=== PATIENT | female | born 1960 | race Caucasian/White ===

== ENCOUNTER → 2018-04-21 10:16 | Outpatient (CLI) | payer OTHER, SELFPAY ==
--- NOTE | 2018-04-21 | DI.MRI.S_ITS ---
PROCEDURE: MR HEAD/BRAIN WO CON INDICATIONS: WORSENING HEADACHES TECHNIQUE: Noncontrast axial T1 spin echo, axial T2 fast spin echo, sagittal and axial FLAIR, coronal T2 fast spin echo, axial gradient echo, axial diffusion and ADC through the brain. COMPARISON: None. FINDINGS: Image quality: Excellent. CSF Spaces: Basal cisterns are patent. No extra-axial fluid collections. Ventricles are normal in size and shape. Brain: No intracranial masses or hemorrhage. Jain/white matter interface is normal. Brainstem appears normal. Diffusion-weighted images demonstrate no acute ischemic insult. No chronic ischemic insults. Normal intravascular flow voids are present. Skull and face: Calvarium has normal marrow signal. Orbits appear normal. Sinuses: Sinuses and mastoids are clear. IMPRESSION: A cause of worsening headaches cannot be seen. No masses or mass effect. No hydrocephalus or brain edema. No Chiari 1 malformation. Dictated by: Sheldon Wadsworth M.D. on 04/21/2018 at 13:31 Approved by: Sheldon Wadsworth M.D. on 04/21/2018 at 13:32
== END ==
PROVIDERS: Visit Provider Nurse Practitioner Family
DX: R51 Headache (principal)
CPT/HCPCS: 70551

== ENCOUNTER → 2019-05-31 10:01 | Outpatient (CLI) | payer OTHER, SELFPAY ==
--- NOTE | 2019-05-31 10:06 | DI.RAD.S_ITS ---
PROCEDURE: XR FOREARM RT 2V INDICATIONS: r/o fracture TECHNIQUE: 2 views of the forearm were acquired. COMPARISON: None. FINDINGS: Bones: No fractures or dislocations. No suspicious bony lesions. Soft tissues: No suspicious soft tissue calcifications or masses. IMPRESSION: No radial or ulnar shaft fracture. No dislocation. Please see separately dictated left elbow radiographs. Dictated by: Star Lam M.D. on 05/31/2019 at 10:29 Approved by: Star Lam M.D. on 05/31/2019 at 10:31
--- NOTE | 2019-05-31 10:06 | DI.RAD.S_ITS ---
PROCEDURE: XR ELBOW LT MIN 3V INDICATIONS: r/o fracture TECHNIQUE: 3 views of the elbow were acquired. COMPARISON: Same day radius and ulna radiographs. FINDINGS: Bones: Irregularity at the radial neck may represent a nondisplaced fracture or osteophyte. Medial and lateral epicondyles enthesophyte. No suspicious bony lesions. Soft tissues: A elbow joint effusion is present. No suspicious soft tissue calcifications. IMPRESSION: Irregularity at the radial neck is suspicious for a nondisplaced fracture. No dislocation. Small joint effusion. Dictated by: Star Lam M.D. on 05/31/2019 at 10:31 Approved by: Star Lam M.D. on 05/31/2019 at 10:34
--- NOTE | 2019-05-31 10:06 | DI.RAD.S_ITS ---
PROCEDURE: XR WRIST LT MIN 3V INDICATIONS: r/o fracture TECHNIQUE: 5 views of the wrist were acquired. COMPARISON: None. FINDINGS: Bones: No fractures or dislocations. No suspicious bony lesions. Scaphoid view: Normal. Soft tissues: No suspicious soft tissue calcifications. IMPRESSION: No acute osseous abnormality. Dictated by: Star Lam M.D. on 05/31/2019 at 10:28 Approved by: Star Lam M.D. on 05/31/2019 at 10:29
== END ==
PROVIDERS: Visit Provider Physician Assistant
DX: M25.522 Pain in left elbow (principal); M25.422 Effusion, left elbow; S52.135A Nondisplaced fracture of neck of left radius, initial encounter for closed fracture; W19.XXXA Unspecified fall, initial encounter
CPT/HCPCS: 73080; 73090; 73110

== ENCOUNTER 2021-01-22 06:56 | Emergency (ER) | payer OTHER, SELFPAY ==
[2021-01-22] VITALS (8 sets, daily range): BP systolic 133–179; BP diastolic 80–108; PULSE 110–131; RESP 17; TEMP 37; O2SAT 96–99; BMI 25.7
--- NOTE | 2021-01-22 07:09 | ED_ITS ---
HPI - General Adult General Chief complaint: Abdominal Pain Stated complaint: horrible left side pain Time Seen by Provider: 01/22/21 06:59 Source: patient Mode of arrival: Ambulatory Limitations: no limitations History of Present Illness HPI narrative: Patient is a 60-year-old female here for evaluation of left-sided pain. She states it woke her from sleep approximately 5 hours prior to arrival here in the emergency department. Has been constant since then however has had periods of time what is been worse than others. She has had a bowel movement urinated since the onset of the pain but has not had any relief from this. Does seem to get somewhat worse with moving. Nothing seems to make it better. No fevers. No back pain. Has never had a kidney stone before. Has had her appendix and gallbladder removed and also hysterectomy. Related Data Home Medications Medication Instructions Recorded Confirmed Atorvastatin Calcium (Lipitor) 20 mg PO #0 03/13/10 05/31/19 Candesartan Cilexetil (Atacand) #0 03/13/10 05/31/19 Conjugated Estrogens (Premarin) #0 03/13/10 05/31/19 Esomeprazole Magnesium (Nexium) #0 03/13/10 05/31/19 FLUTICASONE/SALMETEROL (Advair #0 03/13/10 05/31/19 100-50 Diskus) Montelukast Sodium (Singulair) #0 03/13/10 05/31/19 [CLARINEX] #0 03/13/10 05/31/19 Previous Rx's Medication Instructions Recorded ciprofloxacin HCl 500 mg PO BID 10 Days #19 tab 01/22/21 fluconazole [Diflucan] 150 mg PO DAILY #2 tab 01/22/21 hydrocodone-acetaminophen 1 tab PO Q6H PRN #7 tab 01/22/21 metronidazole [Flagyl] 500 mg PO TID 10 Days #29 tab 01/22/21 ondansetron 4 mg PO Q6H PRN #10 tab 01/22/21 Allergies Allergy/AdvReac Type Severity Reaction Status Date / Time Cortisone Allergy Unknown Uncoded 05/31/19 10:57 Iodine Allergy Unknown Uncoded 05/31/19 10:57 Morphine Allergy Unknown Uncoded 05/31/19 10:57 Review of Systems Constitutional Constitutional: Reports system reviewed and no additional complaints, except as documented Cardiovascular Cardiovascular: Reports system reviewed and no additional complaints, except as documented Respiratory Respiratory: Reports system reviewed and no additional complaints, except as documented Gastrointestinal Gastrointestinal: Reports abdominal pain, Denies constipation and Denies diarrhea Genitourinary Genitourinary: Denies dysuria Genitourinary: Denies dysuria Musculoskeletal Musculoskeletal: Denies back pain Integumentary/Breasts Skin/Breast: Reports system reviewed and no additional complaints, except as documented Neurologic Neurologic: Reports system reviewed and no additional complaints, except as documented Endocrine Endocrine: Reports system reviewed and no additional complaints, except as documented Hematologic/Lymphatic On Anticoagulants: No Allergic/Immunologic Allergic/Immunologic: Reports system reviewed and no additional complaints, except as documented Patient History Medical History Diabetes Social History lives independently: Yes Smoking Status: Never smoker Exam Initial Vital Signs Initial Vital Signs: Vital Signs Pulse Rate 131 H 01/22/21 07:03 Blood Pressure 178/108 H 01/22/21 07:03 Pulse Oximetry 97 01/22/21 07:03 Const General: cooperative Limitations: mental status not altered HENMT Head: normal to inspection and normocephalic Resp Effort & Inspection: normal respiratory effort Auscultation: clear to auscultation bilaterally Cardio Rate: tachycardic Rhythm: regular rhythm GI Inspection: non-distended Palpation: soft and tender (Left-sided abdomen) Back/Spine/Pelvis Back: No CVA tenderness Skin Lesions: no lesions Rashes: no rashes Neuro General: patient alert and patient awake Cognition: normal cognition Speech: speech normal Extrem General: capillary refill normal Psych Appearance: grossly normal and well kempt Course Orders Ordered: ED Orders 01/22/21 07:10 EKG-12 Lead Stat 01/22/21 07:11 Complete Blood Count AUTO DIFF Stat Comprehensive Metabolic Panel Stat Lipase Stat 01/22/21 07:20 Urine Microscopic Stat 01/22/21 08:23 CT kidney ureter bladder (KUB) Stat Discontinued Medications Ciprofloxacin (Ciprofloxacin 250 Mg Tablet) 500 mg PO NOW ONE Stop: 01/22/21 09:02 Hydromorphone HCl (Hydromorphone 0.5 Mg Inj) 0.5 mg IV NOW ONE Stop: 01/22/21 07:10 Last Admin: 01/22/21 07:25 Dose: 0.5 mg Documented by: DAINA Hydromorphone HCl (Hydromorphone 0.5 Mg Inj) 0.5 mg IV NOW ONE Stop: 01/22/21 08:13 Last Admin: 01/22/21 08:16 Dose: 0.5 mg Documented by: DAINA Sodium Chloride (Normal Saline 0.9%) 1,000 mls @ 1,000 mls/hr IV BOLUS ONE Stop: 01/22/21 08:08 Last Infusion: 01/22/21 08:37 Dose: 0 mls/hr Documented by: Admin: 01/22/21 07:30 Dose: 1,000 mls/hr Documented by: DAINA Metronidazole (Metronidazole 500 Mg Tablet) 500 mg PO NOW ONE Stop: 01/22/21 09:02 Ondansetron HCl (Ondansetron 4 Mg/2 Ml Inj) 4 mg IV NOW ONE Stop: 01/22/21 07:10 Last Admin: 01/22/21 07:25 Dose: 4 mg Documented by: DAINA Vital Signs Vital signs: Vital Signs - 8 hr 01/22/21 07:03 01/22/21 07:05 01/22/21 07:27 Temperature 98.6 F Pulse Rate 131 H 131 H 126 H Respiratory Rate 17 Blood Pressure 178/108 H 178/108 H 179/80 H Pulse Oximetry 97 96 97 01/22/21 07:30 01/22/21 08:04 01/22/21 08:05 Temperature Pulse Rate 124 H 117 H 116 H Respiratory Rate Blood Pressure 133/87 168/89 H Pulse Oximetry 96 99 96 Medical Decision Making Lab Data Lab results reviewed: Yes I reviewed the patient's lab results. Result diagrams: 01/22/21 07:11 01/22/21 07:11 Labs: Lab Results 01/22/21 01/22/21 01/22/21 Range/Units 07:11 07:11 07:20 WBC 16.6 H (4.5-11.0) X10^3/uL RBC 4.72 (4.0-5.2) X10^6/uL Hgb 13.6 (12.0-16.0) g/dL Hct 39.5 (36-46) % MCV 83.7 (80-100) fL MCH 28.7 (26-34) PG MCHC 34.3 (30-36) % RDW 12.6 (11.6-14.8) % Plt Count 444 H (150-400) X10^3/uL Neut % (Auto) 83.4 H (50-75) % Lymph % (Auto) 8.2 L (25-40) % [place] % (Auto) 7.3 (3-14) % Eos % (Auto) 0.7 L (2-4) % Baso % (Auto) 0.4 (0-2) % Neut # (Auto) 28200 H (9751-8335) /uL Lymph # (Auto) 1400 (0189-0731) /uL [place] # (Auto) 1200 H (0-900) /uL Eos # (Auto) 100 (0-450) /uL Baso # (Auto) 100 (0-100) /uL Sodium 133 L (137-145) mmol/L Potassium 3.0 L (3.4-5.1) mmol/L Chloride 89 L (98-107) mmol/L Carbon Dioxide 28 (22-32) mmol/L BUN 28 H (7-17) mg/dL Creatinine 1.34 H (0.52-1.04) mg/dL Estimated GFR 40.3 L (>60) mL/min BUN/Creatinine Ratio 20.9 (6-22) Glucose 241 H (80-110) mg/dL Calcium 10.3 H (8.4-10.2) mg/dL Total Bilirubin 1.1 (0.2-1.3) mg/dL AST 29 (14-36) IU/L ALT 26 (<35) IU/L Alkaline Phosphatase 80 (38-126) U/L Total Protein 8.6 H (6.3-8.2) g/dL Albumin 5.0 (3.5-5.0) g/dL Globulin 3.6 (1.7-4.1) g/dL Albumin/Globulin Ratio 1.4 (1.0-2.8) Lipase 170 (23-300) U/L Urine RBC 1-5/hpf (0-5/HPF) Urine WBC 1-5/hpf (0-5/HPF) Ur Squamous Epith Cells 1-5 /hpf (0-5/HPF) Ur Transition Epith Cell 0-1/hpf (0-5/HPF) Urine Bacteria Occasional (0-1) (None) Ur Culture Indicated? Cult not indicated Urine Dip Bedside Urine Glucose 1000 mg/dl Bedside Urine Bilirubin - Negative Bedside Urine Ketone ++ 40 Urine Specific [place] 1.015 Bedside Urine Occult Blood +/- Bedside Urine pH 6 Bedside Urine Protein + 30 Bedside Urine Urobilinogen - Negative Bedside Urine Nitrite - Negative Bedside Urine Leukocytes - Negative Esterase Point of care testing: Urine Dip Bedside Urine Glucose 1000 mg/dl Bedside Urine Bilirubin - Negative Bedside Urine Ketone ++ 40 Urine Specific [place] 1.015 Bedside Urine Occult Blood +/- Bedside Urine pH 6 Bedside Urine Protein + 30 Bedside Urine Urobilinogen - Negative Bedside Urine Nitrite - Negative Bedside Urine Leukocytes - Negative Esterase Imaging Data CT scan - abdomen/pelvis: Radiologist's Impression: [address] [id number] Scan ReportSigned Patient: Keesha EscobarMR#: [id number]: 1960Acct:[id number]/Sex: 60 / FDate of Service: 01/22/21Loc: EDAccession Number: [id number] Procedure: CT kidney ureter bladder (KUB) Ordering Provider: Martin Kirk D.O. PROCEDURE: CT KIDNEY URETER BLADDER (KUB) INDICATIONS: Left-sided pain eval for stone TECHNIQUE: Noncontrast 5 mm thick sections acquired from the diaphragms to the symphysis. 5 mm thick coronal and sagittal reformats were then performed. For radiation dose reduction, the following was used: automated exposure control, adjustment of mA and/or kV according to patient size. COMPARISON: None. FINDINGS: Image quality: Excellent. Lung bases: Mild bibasilar dependent atelectasis is seen posteriorly.. Heart size is normal. Urinary system: Both kidneys are normal in size. No kidney stones. No hydronephrosis or perinephric fat stranding. Both ureters appear non-dilated throughout their expected courses. Bladder wall thickness is normal; no calcified bladder stones. Multiple phleboliths are seen in lower pelvis. Other solid organs: Liver is normal in size. Decreased liver parenchymal density is seen suggestive of hepatic steatosis. Gallbladder is surgically absent.. Pa ncreas is normal in contours. Spleen is normal in size. 1.2 x 1 cm fat density nodule in left adrenal gland is seen series 2, image 18 and is consistent with lipid rich adrenal adenoma. No right adrenal nodules. Peritoneum and bowel: There is no bowel obstruction. No gross gastric or small bowel wall thickening. Fecal stasis in the colon is seen. Distal descending colon and sigmoid diverticulosis is noted. Significant wall thickening with pericolonic fat stranding is seen involving proximal to mid portion of sigmoid colon in left lower quadrant consistent with acute diverticulitis. No abscess collection. No free fluid or free air. Nodes and vessels: No retroperitoneal or mesenteric adenopathy by size criteria. Aorta and inferior vena cava are normal in caliber. Abdominal wall: No ventral hernias. Pelvis: No free pelvic fluid. No inguinal hernias or adenopathy. Bones: No suspicious bony lesions. No vertebral body compression fractures. Degenerative disc disease throughout lumbar spine is seen. Osteoarthritic changes are noted throughout bony pelvis. IMPRESSION: 1. No renal stones or hydronephrosis. Normal appearing bilateral ureters and urinary bladder. Multiple phleboliths seen in lower pelvis. 2. Finding is consistent with uncomplicated acute diverticulitis involving proximal to mid sigmoid colon in left lower quadrant. No abscess collection. No free fluid or free air. 3. Mild hepatic steatosis. 4. Incidentally noted of fat density nodule in left adrenal gland as above consistent with lipid rich adrenal adenoma. Dictated by: Franck Calderón M.D. on 01/22/2021 at 8:16 Approved by: Franck Calderón M.D. on 01/22/2021 at 8:21 ECG Data Attestation: I personally reviewed and interpreted this ECG as follows: Prior ECG tracings: not available for review Interpretation: Sinus tachycardia Ventricular rate of 127 Normal QRS Normal QTC Nonspecific ST T wave changes MDM Narrative Medical decision making narrative: Patient does have a leukocytosis. Is afebrile. CT scan does not show any signs of kidney stone but does show uncomplicated diverticulitis without indication of abscess/perforation. Patient was given 1st dose of antibiotics here in the emergency department. Will send home with antibiotics and other symptoms treatment. Patient was given return precautions and follow-up instructions. She expressed understanding and agreement. Discharge Plan Departure Patient Disposition: Home Clinical Impression: Diverticulitis Instructions: DI for Diverticulitis Activity Restrictions/Additional Instructions: Your 1st dose of antibiotics was given here in the emergency department. A prescription for the rest of your medications was electronically transmitted to [facility] in [place]. Contact your primary doctor when you return home. Return to the emergency department for any new or worsening symptoms like we discussed. Prescriptions: New ciprofloxacin HCl 500 mg tablet 500 mg PO BID 10 Days Qty: 19 RF: 0 metronidazole [Flagyl] 500 mg tablet 500 mg PO TID 10 Days Qty: 29 RF: 0 ondansetron 4 mg tablet,disintegrating 4 mg PO Q6H PRN (Reason: nausea and vomiting) Qty: 10 RF: 0 hydrocodone-acetaminophen 5-325 mg tablet 1 tab PO Q6H PRN (Reason: pain) Qty: 7 RF: 0 fluconazole [Diflucan] 150 mg tablet 150 mg PO DAILY Qty: 2 RF: 0 No Action Atorvastatin Calcium (Lipitor) 20 mg PO Qty: 0 RF: 0 Candesartan Cilexetil (Atacand) Qty: 0 RF: 0 Conjugated Estrogens (Premarin) Qty: 0 RF: 0 Esomeprazole Magnesium (Nexium) Qty: 0 RF: 0 [CLARINEX] Qty: 0 RF: 0 FLUTICASONE/SALMETEROL (Advair 100-50 Diskus) Qty: 0 RF: 0 Montelukast Sodium (Singulair) Qty: 0 RF: 0
[2021-01-22 07:20] LABS: Add Manual Diff / Slide Review NO; Basophils Absolute Auto 100 /uL (0-100); Basophils Percent Auto 0.4 % (0-2); Eosinophils Absolute Auto 100 /uL (0-450); Eosinophils Percent Auto 0.7 % (2-4); Hematocrit 39.5 % (36-46); Hemoglobin 13.6 g/dL (12.0-16.0); Lymphocytes Absolute Auto 1400 /uL (1100-4500); Lymphocytes Percent Auto 8.2 % (25-40); Mean Corpuscular HGB Conc 34.3 % (30-36); Mean Corpuscular Hemoglobin 28.7 PG (26-34); Mean Corpuscular Volume 83.7 fL (80-100); Monocytes Absolute Auto 1200 /uL (0-900); Monocytes Percent Auto 7.3 % (3-14); Neutrophils Absolute Auto 13800 /uL (1500-7000); Neutrophils Percent Auto 83.4 % (50-75); Platelet Count 444 X10^3/uL (150-400); Red Blood Cell Count 4.72 X10^6/uL (4.0-5.2); Red Cell Distribution Width 12.6 % (11.6-14.8); White Blood Cell Count 16.6 X10^3/uL (4.5-11.0)
[2021-01-22] MEDS: ONDANSETRON 4 MG/2 ML INJ IV (07:25)
[2021-01-22] MEDS: HYDROMORPHONE 0.5 MG INJ IV ×2 (07:25→08:16)
[2021-01-22 07:29] LABS: Alanine Aminotransferase 26 IU/L (<35); Albumin Globulin Ratio 1.4 (1.0-2.8); Alkaline Phosphatase 80 U/L (38-126); Aspartate Aminotransferase 29 IU/L (14-36); BUN Creatinine Ratio 20.9 (6-22); Bilirubin Total 1.1 mg/dL (0.2-1.3); Blood Urea Nitrogen 28 mg/dL (7-17); Calcium 10.3 mg/dL (8.4-10.2); Carbon Dioxide 28 mmol/L (22-32); Chloride 89 mmol/L (98-107); Estimated Glomerular Filt Rate 40.3 mL/min (>60); Globulin 3.6 g/dL (1.7-4.1); Glucose 241 mg/dL (80-110); HEMOLYSIS < 15 (0-50); Lipase 170 U/L (23-300); Sodium 133 mmol/L (137-145); Total Protein 8.6 g/dL (6.3-8.2)
[2021-01-22] MEDS: SODIUM CHLORIDE 0.9% 1,000 ML 1000 ML IV (07:30)
[2021-01-22 07:55] LABS: RBC Urine 1-5/HPF (0-5/HPF); Squamous Epithelial Cell Urine 1-5 /HPF (0-5/HPF); Transitional Epi Cells Urine 0-1/HPF (0-5/HPF); WBC Urine 1-5/HPF (0-5/HPF)
[2021-01-22 07:58] LABS: Bacteria Urine Occasional (0-1); Culture Indicated Urine Cult Not Indicated
--- NOTE | 2021-01-22 08:23 | DI.CT.S_ITS ---
PROCEDURE: CT KIDNEY URETER BLADDER (KUB) INDICATIONS: Left-sided pain eval for stone TECHNIQUE: Noncontrast 5 mm thick sections acquired from the diaphragms to the symphysis. 5 mm thick coronal and sagittal reformats were then performed. For radiation dose reduction, the following was used: automated exposure control, adjustment of mA and/or kV according to patient size. COMPARISON: None. FINDINGS: Image quality: Excellent. Lung bases: Mild bibasilar dependent atelectasis is seen posteriorly.. Heart size is normal. Urinary system: Both kidneys are normal in size. No kidney stones. No hydronephrosis or perinephric fat stranding. Both ureters appear non-dilated throughout their expected courses. Bladder wall thickness is normal; no calcified bladder stones. Multiple phleboliths are seen in lower pelvis. Other solid organs: Liver is normal in size. Decreased liver parenchymal density is seen suggestive of hepatic steatosis. Gallbladder is surgically absent.. Pancreas is normal in contours. Spleen is normal in size. 1.2 x 1 cm fat density nodule in left adrenal gland is seen series 2, image 18 and is consistent with lipid rich adrenal adenoma. No right adrenal nodules. Peritoneum and bowel: There is no bowel obstruction. No gross gastric or small bowel wall thickening. Fecal stasis in the colon is seen. Distal descending colon and sigmoid diverticulosis is noted. Significant wall thickening with pericolonic fat stranding is seen involving proximal to mid portion of sigmoid colon in left lower quadrant consistent with acute diverticulitis. No abscess collection. No free fluid or free air. Nodes and vessels: No retroperitoneal or mesenteric adenopathy by size criteria. Aorta and inferior vena cava are normal in caliber. Abdominal wall: No ventral hernias. Pelvis: No free pelvic fluid. No inguinal hernias or adenopathy. Bones: No suspicious bony lesions. No vertebral body compression fractures. Degenerative disc disease throughout lumbar spine is seen. Osteoarthritic changes are noted throughout bony pelvis. IMPRESSION: 1. No renal stones or hydronephrosis. Normal appearing bilateral ureters and urinary bladder. Multiple phleboliths seen in lower pelvis. 2. Finding is consistent with uncomplicated acute diverticulitis involving proximal to mid sigmoid colon in left lower quadrant. No abscess collection. No free fluid or free air. 3. Mild hepatic steatosis. 4. Incidentally noted of fat density nodule in left adrenal gland as above consistent with lipid rich adrenal adenoma. Dictated by: Franck Calderón M.D. on 01/22/2021 at 8:16 Approved by: Franck Calderón M.D. on 01/22/2021 at 8:21
[2021-01-22] MEDS: CIPROFLOXACIN 250 MG TABLET 500 MG PO (09:16)
[2021-01-22] MEDS: metroNIDAZOLE 500 MG TABLET PO (09:17)
== END 2021-01-22 09:37 | disposition home or self-care (01) ==
PROVIDERS: Emergency Provider Emergency Medicine
DX: K57.92 Diverticulitis of intestine, part unspecified, without perforation or abscess without bleeding (principal); R00.0 Tachycardia, unspecified
CPT/HCPCS: 36415; 74176; 80053; 81003; 81015; 83690; 85025; 93005; 96361; 96374; 96375; 96376; 99284; J1170; J2405